=== PATIENT | female | born 1935 | race Caucasian/White ===

== ENCOUNTER 2017-01-29 11:48 | Inpatient (IN) | payer MEDICARE, BC ==
[2017-01-29] MEDS ORDERED: HYDROCODONE/APAP 5/325MG TABLET PO PRN ×2 (16:56)
[2017-01-29] MEDS ORDERED: TAPENTADOL 50 MG TAB PO ONE (20:44)
--- NOTE | 2017-01-29 20:44 | History & Physical ---
History of Present Illness - Date Date of Service for History & Physical: 01/30/17 - History of Present Illness Admitting Diagnosis: deconditioning post op urostomy, oopherectomy, appendectomy , hysterectomy History of Present Illness: 81 yo female admitted to our [facility] for weakness/de conditioning. PMHx of HTN, cardiac pacemaker (h/o afib w/ bradycardia), hypothyroidism, arthritis, back pain, headaches, heart murmur, and bladder cancer. Patient is now post op day 6 from cystectomy, laparoscopic robotic ileal loop diversion, total abdominal hysterectomy, bilateral salpingo-oophorectomy, appendectomy, bilateral pelvic lymph node dissection (01/24/17) for muscle invasive bladder cancer. Most recent labs 01/28/17. Hgb 8.2 s/p 2 L's of PRBC. Anemia thought to be related to blood loss during surgery. Patient lives independently in [place]. One story home. walk in shower. General - Cognitive Patterns Speech: Normal Thought Process: Intact Thought Content: Normal Orientation: Oriented x3 - Communication Preferred Language?: Upper Sorbian [place] Required: Yes Level of Education: High School Preferred Method of Learning: Seeing, Doing, Reading Comprehension Ability: No Impairment Able to Read: Yes Able to Write: Yes Select best description of speech pattern: Clear Speech Ability to express ideas and wants: Understood Understanding verbal content: Understands - Psychosocial Well-Being Usual Living Arrangement: Alone - Physical Functioning Activity Level: Up with assist x1 Turning: Self ad swapnil ROM Ability: Moves all extremities Ambulation Ability: Needs Assist Bed Mobility: Independent Transfer Ability: Needs Assist Bathing Ability: Needs Assist Personal Hygiene: Independent Dressing Ability: Needs Assist Eating (Feeding) Ability: Independent Toileting Ability: Needs Assist Administer Own Medication: Needs Assist - Dental Status Unable to examine: No Broken or loosely fitting full or partial dentures: No No natural teeth or tooth fragment(s) (edentulous): No Abnormal mouth tissue (ulcers, masses, oral lesions, etc.): No Obvious or likely cavity or broken natural teeth: No Inflamed or bleeding gums or loose natural teeth: No Mouth/facial pain, discomfort or difficulty chewing: No - Nutrition Screening Poor oral intake > 1 week: Yes Unplanned weight loss in specified time frame: No Nutrition Support via tube feedings or parenteral nutrition: No Pressure Ulcer: No Significantly underweight define as BMI <18.5 kg/m2: No Albumin <2.5mg/dL: No Persistent nausea/vomiting/diarrhea >3 days: No Difficulty chewing/swallowing/mouth sores: No Admitting Diagnosis: Yes Nutrition Risk Score: High Risk Review of Systems Constitutional: Reports: Weakness. Denies: Chills, Fever Eyes: Denies: Eye pain ENT: Denies: Congestion Respiratory: Denies: Cough, Wheezes Cardiovascular: Denies: Chest pain, Dyspnea on exertion, Edema Endocrine: Reports: Fatigue Gastrointestinal: Reports: Abdominal pain (at surgical site). Denies: Constipation, Diarrhea, Hematochezia, Nausea, Vomiting Genitourinary: Denies: Hematuria Skin: Denies: Change in color, Lesions Neurological: Denies: Abnormal gait Psychiatric: Denies: Anxiety Hematological/Lymphatic: Reports: Anemia Past Medical History - SOCIAL HISTORY Smoking Status: Never smoker Alcohol Use: Occasional - SURGICAL HISTORY Past Surgical History: 10/20/14 l4,l5 stabilization with rods;. D&C; bilateral total knees;. pacemaker insertion;. cystoscopy w TURBT;. cystoscopies in urology clinic;colonoscopy. mar 08 [facility] - RESPIRATORY Hx Respiratory Disorders: No - CARDIOVASCULAR Hx Cardio Disorders: Yes Hx Abnormal EKG: No Hx Cardiac Cath: No Hx Chest Pain: No Hx CHF: No Hx Deep Vein Thrombosis: No Hx Edema: No Hx Heart Attack: No Hx Hypertension: Yes (good control w meds) Hx Hypotension: No Hx Irregular Heartbeat: No Hx Palpitations: No Hx Pacemaker/Defib: Yes (hx bradycardia) Hx Vascular Disease: No - NEURO Hx Neuro Disorders: Yes Hx Brain Tumor: No Hx CVA: No Hx Dementia: No Hx Dizziness: No Hx Headaches: No Hx Neuropathy: No Hx Parkinson's Disease: No Hx Seizures: No Hx Speech Problem: No Hx TIA: No Hx Weakness: Yes (deconditioning) - GI Hx GI Disorders: No - Hx Genitourinary Disorders: Yes Hx Bladder Problem: Yes (CA) Hx Dialysis: No Hx Kidney Stones: No Hx Renal Disease: No Hx UTI: Yes Comment:: bladder CA, Dr Arredondo following - ENDOCRINE Hx Endocrine Disorders: Yes Hx Diabetes: No Hx Thyroid Disease: Yes (hypo) - MUSCULOSKELETAL Hx Musculoskeletal Disorders: Yes Hx Arthritis: Yes Hx Back Injury: No Hx Fibromyalgia: No Hx Gout: No Hx Musculoskeletal Disease: Yes Hx Osteoporosis: No Comment:: scoliosis, 2 bad discs - PSYCH Hx Psych Problems: No - HEMATOLOGY/ONCOLOGY Hx Hematology/Oncology Disorders: Yes Hx Anemia: Yes Hx Blood Disorders: No Hx Bruising: No Hx Cancer: Yes (bladder) Hx Chemotherapy: Yes Hx Radiation Therapy: No Hx Clotting Problems: No Hx Sickle Cell Disease: No Hx Unexplained Bleeding: No Hx Blood Transfusions: Yes Hx Blood Transfusion Reaction: No Family Medical History Any Significant Family History?: Yes Hx Cancer: Father, Children *Cancer Comment: bladder father, daughter breast Hx Dementia: Mother *Dementia Comment: alzheimers mother Hx Diabetes: Children *Diabetes Comment: daughter Hx HTN: Father, Mother Hx Stroke: Father H&P Meds/Allergies - Allergies Allergies: Allergies Allergy/AdvReac Type Severity Reaction Status Date / Time acetaminophen [From Percocet] Allergy severe Verified 01/29/17 17:31 vomiting oxycodone HCl [From Percocet] Allergy severe Verified 01/29/17 17:31 vomiting tramadol HCl [From ULTRAM] AdvReac Severe NAUSEA AND Verified 01/29/17 17:31 VOMITING codeine [CODEINE] AdvReac Intermediate ALTERED Verified 01/29/17 17:31 MENTAL STATUS hydrocodone bitartrate AdvReac Intermediate NAUSEA AND Verified 01/29/17 17:31 [From [place]] VOMITING prednisone AdvReac Intermediate HIVES Verified 01/29/17 17:31 Sulfa (Sulfonamide AdvReac Intermediate RASH Verified 01/29/17 17:31 Antibiotics) [SULFA(SULFONAMIDE ANTIBIOTICS)] - Home Medications Home Medications Medication Instructions Recorded Confirmed Last Taken Ascorbic Acid [Vitamin C] 500 mg PO DAILY 11/17/14 01/29/17 03/16/16 Beta-Carotene(A)-Vits C,E/Mins 1 each PO DAILY 11/17/14 01/29/17 03/16/16 [Vision Vitamins] Biotin 2 cap PO DAILY 11/17/14 01/29/17 03/16/16 Calcium Carbonate [Calcium] 600 mg PO DAILY 11/17/14 01/29/17 03/16/16 Fish Oil/Dha/Epa [Fish Oil 1,200 1 each PO DAILY 11/17/14 01/29/17 03/16/16 mg Fish Oil] Ubidecarenone [Coq10] 2 tab PO DAILY 11/17/14 01/29/17 03/16/16 Hydrocodone/Acetaminophen [[place] 1 - 2 each PO Q4H PRN 01/29/17 01/29/17 Unknown 5-325 Tablet] - Active Medications Active Medications: Current Medications Hydrocodone Bitart/Acetaminophen ([place] 5mg/325mg) 1 each PO Q4H PRN PRN Reason: Pain - General Hydrocodone Bitart/Acetaminophen ([place] 5mg/325mg) 2 each PO Q4H PRN PRN Reason: Pain - General Calcium/Vitamin D (Calcium 500+D Tablet) 1 tab PO BID [place] Levothyroxine Sodium (Synthroid) 100 mcg PO DAILYTHY [place] Lisinopril (Zestril) 20 mg PO DAILY [place] Magnesium Oxide (Mag Ox) 400 mg PO DAILY [place] Vitamin D (Vitamin D3) 5,000 unit PO DAILY [place] Physical Exam - Vital Signs Vital Signs: Vital Signs - Last 24 Hrs Temp Pulse Resp BP Pulse Ox 01/29/17 17:42 98.7 F 64 16 149/88 97 - General General Appearance: Alert, Oriented x3, Cooperative, No acute distress - Head Head exam: Atraumatic, Normocephalic - Eye Eye exam: Normal appearance - ENT ENT exam: Normal exam Ear exam: Normal external inspection Nasal Exam: Normal inspection Mouth exam: Normal external inspection - Neck Neck exam: Normal inspection - Respiratory Respiratory exam: Normal lung sounds bilaterally. negative: Wheezes - Cardiovascular Cardiovascular Exam: Regular rate, Normal rhythm, Normal heart sounds - GI/Abdominal GI/Abdominal exam: Soft, Normal bowel sounds, Other (urostomy bag noted, suture line with amrit). negative: Diminished bowel sounds, Rebound - Rectal Rectal exam: Deferred - exam: Deferred - Extremities Extremities exam: negative: Calf tenderness - Neurological Neurological exam: Alert, Oriented X3 - Skin Skin exam: Warm. negative: Erythema H&P Results - Labs Result Diagrams: 01/30/17 06:23 01/30/17 06:23 Discharge Potential - Discharge Needs Community Services Used Prior to Admission: None Patient Discharge Plan Description: Return Home Discharge Needs Comment: patient unsure at this time if she will need pt/ot upon discharge Plan - Swing Bed Certification Initial Certification Due: 01/29/17 14 Day Re-Cert Due: 02/12/17 44 Day Re-Cert Due: 03/14/17 74 Day Re-Cert Due: 04/13/17 - Detailed Diagnosis and Plan (1) Weakness Current Visit: No Status: Acute Base Code: R53.1 - WEAKNESS Comment: : PT/OT to help build up patient's strength and conditioning. (2) Bladder carcinoma Current Visit: Yes Status: Acute Base Code: C67.9 - MALIGNANT NEOPLASM OF BLADDER, UNSPECIFIED Comment: 01/30/17: s/p cystectomy, laparoscopic robotic ileal loop diversion, total abdominal hysterectomy, bilateral salpingo- oophorectomy, appendectomy, bilateral pelvic lymph node dissection (01/24/17) for muscle invasive bladder cancer. - hgb stable post 2 Units of PRBCs prior to arrival. - pain management: Nucynta - continue all other home medications (3) Full code status Current Visit: Yes Status: Acute Base Code: Z78.9 - OTHER SPECIFIED HEALTH STATUS Comment: 01/30/17: pt is full code
[2017-01-29] MEDS: CALCIUM CARB/VITAMIN D 500MG/200IU PO SCH (21:02)
[2017-01-30] MEDS: LEVOTHYROXINE SODIUM 100 MCG TABLET PO SCH (06:13)
[2017-01-30 06:37] LABS: BASO % 0.2 % (0-6); EOS % 7.2 % (0-6); GRAN % 62.7 % (47-80); HEMATOCRIT 26.6 % (35.0-47.0); HEMOGLOBIN 8.4 gm/dl (11.6-16.0); LYMPH % 17.6 % (16-45); MEAN CELL VOLUME 96.7 fl (81-97); MEAN CORPUSCULAR HEMOGLOBIN 30.5 pg (27-33); MEAN CORPUSCULAR HGB CONC 31.6 g/dl (32-36); MEAN PLATELET VOLUME 9.9 fl (7.4-10.4); MONO % 12.3 % (0-9); PLATELET COUNT 160 K/uL (130-400); RED BLOOD COUNT 2.75 M/uL (3.80-5.40); RED CELL DISTRIBUTION WIDTH 15.3 % (11.5-14.5); WHITE BLOOD COUNT W/O DIFF 5.8 K/uL (4.2-12.2)
[2017-01-30 06:48] LABS: ANION GAP 3.5 (7-16); BLOOD UREA NITROGEN 8 mg/dL (7-17); CARBON DIOXIDE 23.5 mmol/L (22-30); CREATININE 0.7 mg/dL (0.52-1.04); EST GLOMERULAR FILTRATION RATE > 60 ml/min; GLUCOSE,RANDOM 98 mg/dL (70-110)
--- NOTE | 2017-01-30 09:39 | Rehab Evaluation ---
Patient Information - Patient Information Diagnosis: Deconditioning p/o urostomy, oopherectomy, appendectomy, hysterectomy Ordered Treatment: OT Evaluate and Treat Status: Initial Evaluation Surgery: Yes (Multiple incisions in abdomen ) Date of Surgery: 01/24/17 (urostomy, oopherectomy, appendectomy, hysterectomy) History: Detail (Pt here secondary to deconditioning following urostomy, oopherectomy, appendectomy, hysterectomy, marcio pelvic lymph node dissection completed on 01/24/17 as a result of invasive bladder cancer.) Past Medical/Surgical Hx: PAST MEDICAL/SURGICAL HISTORY Past Surgical History 10/20/14 l4,l5 stabilization with rods; D&C; bilateral total knees; pacemaker insertion; cystoscopy w TURBT; cystoscopies in urology clinic;colonoscopy mar 08 [facility] PMH - Respiratory Hx Respiratory Disorders No PMH - Cardiovascular Hx Cardiovascular Disorders Yes Hx Abnormal EKG No Hx Cardiac Catheterization No Hx Chest Pain No Hx Congestive Heart Failure No Hx Deep Vein Thrombosis No Hx Edema No Hx Heart Attack No Hx Hypertension Yes: good control w meds Hx Hypotension No Hx Irregular Heartbeat No Hx Palpitations No Hx Pacemaker/Defibrillator Yes: hx bradycardia Hx Vascular Disease No Hx Heart Murmur No Hx Transient Ischemic Attacks No (TIA) Comment: due to back pain(poor exercise) PMH - Neuro Hx Neurological Disorders Yes Hx Brain Tumor No Hx Cerebrovascular Accident No Hx Dementia No Hx Dizziness No Hx Headaches No Hx Neuropathy No Hx Parkinson's Disease No Hx Seizures No Hx Speech Problem No Hx Syncope No Hx Transient Ischemic Attacks No (TIA) Hx Weakness Yes: deconditioning Comment: using cane now, post [facility] PMH - GI Hx Gastrointestinal Disorders No PMH - Hx Genitourinary Disorders Yes Hx Bladder Problem Yes: CA Hx Dialysis No Hx Kidney Stones No Hx Renal Disease No Hx Urinary Tract Infection Yes Comment: bladder CA, Dr Arredondo following PMH - Endocrine Hx Endocrine Disorders Yes Hx Diabetes No Hx Thyroid Disease Yes: hypo PMH - Musculoskeletal Hx Musculoskeletal Disorders Yes Hx Arthritis Yes Hx Back Injury No Hx Fibromyalgia No Hx Gout No Hx Musculoskeletal Disease Yes Hx Osteoporosis No Comment: scoliosis, 2 bad discs PMH - Psych Hx Psychiatric Problems No PMH - Hematology/Oncology Hx Hematology/Oncology Yes Disorders Hx Anemia Yes Hx Blood Disorders No Hx Bruising No Hx Cancer Yes: bladder Hx Chemotherapy Yes Hx Radiation Therapy No Hx Clotting Problems No Hx Sickle Cell Disease No Hx Unexplained Bleeding No Hx Blood Transfusion Reaction No Premorbid Status: Detail (Pt amb without device while at home and used a cane when outside of the home. She was independent with all ADLs (except laundry) and meal prep.) Social History: Detail (Pt lives alone in a 1-story house w/ 3-steps to enter and 1 hand rail. House is handicap accessible. Laundry is located in the basement but pt reports that her [id number] does her laundry for her. Pt has 3 children, all that live near by and are willing to assist if needed. Pt has a walk-in shower w/ curtain enclosure and hand held shower head. Grab bars located in shower and around standard toilet. Shower had a built in bench but pt reports standing to shower. Pt does have a 4WW w/ seat available at home.) Precautions: Theresa, Fall - Time With Patient Total Time Spent With Patient (Min): 30 Treatment Procedures: Detail (eval LOW) Subjective Information - Subjective Information Per Patient Objective Data - Pain Pain Present: Yes (Abdomen) Pain Intensity: 5 (Nsg notified of pt's pain level) Pain Scale Used: Numeric (1 - 10) - Mental Status Patient Orientation: Oriented x3 - ROM Within normal limits (Pt WNL for BUE's) - Strength/Tone Not within normal limits (Pt grossly 3+ to 4/5. She reports having an old rotator cuff tear in R shld that was not repaired and causes some pain.) - Coordination Appears within normal limits for therapeutic activities - Bed Mobility Independent - Transfers Independent (sit<>stand. Pt completed marching in place at bedside without assist. Pt states she fatigues very quickly. See PT eval for information on ambulation.) - Balance Balance Sitting: Good Balance Standing: Fair - Sensation Deficit (Pt has RTh, RIF, RMF numbness/tingling consistent with Carpal Tunnel Syndrome. She reports having these symptoms for many years.) - ADL's/IADL's Detail (Pt napping upon arrival but willing to participate. Pt does have clothing available. Currently, nsg has been assisting w/ sock don and w/ underwear/pants thread over feet secondary to decreased ability to reach feet due to pain from abdominal incisions. Other then this, pt has been completing UB drsg ind. and finishing LB drsg ind. She states she brushed teeth this a.m. w / nsg present standing at sink without assistance. Pt has multiple incisions w/ amrit. Discussed bathing w/ nsg and PA. It is recommended to continue w/ sponge bathing for a few more days and then try to avoid saturating wounds during showering. Discussed this with patient. Patient understands and agrees but wanting to shower when appropriate. Pt fatigues easily and reports fatigue post evaluation.) Therapy Assessment - Therapy Assessment Detail (Pt tolerated evaluation well. Feel she would benefit from further skilled OT services to address decreased BUE strength, decreased endurance for ADLs, decreased independence with ADLs and for further evaluation of showering.) Problem List - Problem List Occupational Therapy Problem List: Detail (1. Decreased endurance for ADLs 2. Decreased independence w/ drsg and bathing 3. weakness BUE's) Goals - Goals Occupational Therapy Goals: 1. Pt to be ind. with LB drsg using AD if needed. 2. Pt to be ind. and safe with showering. 3. Pt to be grossly 4 to 4+/5 MMT BUE shld flexion, elbow ext, shld abd Prognosis - Prognosis Good Plan - Plan Occupational Therapy Plan: Pt to be treated by OT 2-4x a week M-F
[2017-01-30] MEDS: CALCIUM CARB/VITAMIN D 500MG/200IU PO SCH ×2 (09:50→21:57)
[2017-01-30] MEDS: CHOLECALCIFEROL 1,000 UNIT TABLET PO SCH (09:50)
[2017-01-30] MEDS: LISINOPRIL 20 MG TABLET PO SCH (09:50)
[2017-01-30] MEDS: MAGNESIUM OXIDE 400 MG TABLET PO SCH (09:50)
[2017-01-30] MEDS: TAPENTADOL 50 MG TAB PO PRN ×3 (09:51→21:57)
--- NOTE | 2017-01-30 13:40 | Rehab Evaluation ---
Patient Information - Patient Information Diagnosis: Deconditioning p/o urostomy, oopherectomy, appendectomy, hysterectomy Ordered Treatment: PT Evaluate and Treat Status: Initial Evaluation Surgery: Yes (Multiple incisions in abdomen ) Date of Surgery: 01/24/17 (cystectomy, laparoscopic robotic ileal loop diversion , total abdominal hysterectomy, bilateral salpingo-oopherectomy, appendectomy, B pelvic lymph node dissection) History: Detail (Pt admitted for short-term rehab due to deconditioning following multiple surgical procedures completed on 01/24/17 as a result of invasive bladder cancer.) Past Medical/Surgical Hx: PAST MEDICAL/SURGICAL HISTORY Past Surgical History 10/20/14 l4,l5 stabilization with rods; D&C; bilateral total knees; pacemaker insertion; cystoscopy w TURBT; cystoscopies in urology clinic;colonoscopy mar 08 [facility] PMH - Respiratory Hx Respiratory Disorders No PMH - Cardiovascular Hx Cardiovascular Disorders Yes Hx Abnormal EKG No Hx Cardiac Catheterization No Hx Chest Pain No Hx Congestive Heart Failure No Hx Deep Vein Thrombosis No Hx Edema No Hx Heart Attack No Hx Hypertension Yes: good control w meds Hx Hypotension No Hx Irregular Heartbeat No Hx Palpitations No Hx Pacemaker/Defibrillator Yes: hx bradycardia Hx Vascular Disease No Hx Heart Murmur No Hx Transient Ischemic Attacks No (TIA) Comment: due to back pain(poor exercise) PMH - Neuro Hx Neurological Disorders Yes Hx Brain Tumor No Hx Cerebrovascular Accident No Hx Dementia No Hx Dizziness No Hx Headaches No Hx Neuropathy No Hx Parkinson's Disease No Hx Seizures No Hx Speech Problem No Hx Syncope No Hx Transient Ischemic Attacks No (TIA) Hx Weakness Yes: deconditioning Comment: using cane now, post [facility] PMH - GI Hx Gastrointestinal Disorders No PMH - Hx Genitourinary Disorders Yes Hx Bladder Problem Yes: CA Hx Dialysis No Hx Kidney Stones No Hx Renal Disease No Hx Urinary Tract Infection Yes Comment: bladder CA, Dr Arredondo following PMH - Endocrine Hx Endocrine Disorders Yes Hx Diabetes No Hx Thyroid Disease Yes: hypo PMH - Musculoskeletal Hx Musculoskeletal Disorders Yes Hx Arthritis Yes Hx Back Injury No Hx Fibromyalgia No Hx Gout No Hx Musculoskeletal Disease Yes Hx Osteoporosis No Comment: scoliosis, 2 bad discs PMH - Psych Hx Psychiatric Problems No PMH - Hematology/Oncology Hx Hematology/Oncology Yes Disorders Hx Anemia Yes Hx Blood Disorders No Hx Bruising No Hx Cancer Yes: bladder Hx Chemotherapy Yes Hx Radiation Therapy No Hx Clotting Problems No Hx Sickle Cell Disease No Hx Unexplained Bleeding No Hx Blood Transfusion Reaction No Premorbid Status: Detail (Pt ambulated independently w/o assistive device within her home, but used a cane out of the home, except to walk to mailbox. She was independent with all self-care ADLs, meal prep, and driving; her daughter helps with housecleaning and laundry.) Social History: Detail (Pt lives alone in a 1-story house w/ 3-steps to enter and 1 hand rail. House is handicap accessible. Laundry is located in the basement but pt reports that her [id number] does her laundry for her. Pt has 3 children, all that live near by and are willing to assist if needed. Pt has a walk-in shower w/ curtain enclosure and hand held shower head. Grab bars located in shower and around standard toilet. Shower had a built in bench but pt reports standing to shower. Pt does have a 4WW w/ seat available at home.) Precautions: Sims, Fall - Time With Patient Total Time Spent With Patient (Min): 35 Treatment Procedures: Detail (PT Evaluation) Subjective Information - Subjective Information Per Patient (Pt up in recliner upon presentation. She reported fatigue after cleaning up and eating breakfast, rested a while, and then got dressed and was fatigued again. She reported abdominal surgical pain for which she had had pain medication about an hour prior and it was diminishing. Cooperative for therapy.) Objective Data - Pain Pain Present: Yes Pain Intensity: 4 (Abdomen) Pain Scale Used: Numeric (1 - 10) - Mental Status Patient Orientation: Oriented x3 - Visual Perception Appears within normal limits for therapeutic activities - ROM Within normal limits - Strength/Tone Within normal limits (Good strength in major muscle groups of B LEs to manual muscle testing, but poor endurance.), Not within normal limits (Hip instability noted R > L with standing w/o assistive device and with walking.) - Coordination Appears within normal limits for therapeutic activities - Bed Mobility Independent - Transfers Independent - Balance Balance Sitting: Good Balance Standing: Good (Performed Cheek Balance test: required supervision for standing with narrow base of support; unable to lease picker object from floor due to abdominal surgery; unable to stand on one leg or tandem, but was able to balance in stride stance w/o difficulty. Turns 350 safely but slowly.) - Sensation Intact - Gait Detail (Ambulated w/front wheeled walker w/SBA about 102 feet. Had difficulty talking while walking, felt short of breath.) Therapy Assessment - Therapy Assessment Detail (Pt exhibits mild LE weakness, mild balance difficulty, and significant activity intolerance due to post-surgical condition. She is a good candidate for inpatient physical therapy.) Patient Education - Patient Education Teaching Topic: Exercise/Activity Response: Verbalize Understanding Teaching Method: Discussion Teaching Recipient: Patient Barriers To Learning: None Problem List - Problem List Physical Therapy Problem List: Detail (1. Mild proximal LE weakness. 2. Mild balance impairment. 3. Significant activity intolerance.) Occupational Therapy Problem List: Detail (1. Decreased endurance for ADLs 2. Decreased independence w/ drsg and bathing 3. weakness BUE's) Goals - Goals Physical Therapy Goals: 1. Pt will safely and independently ambulate over short community distances/surfaces with appropriate assistive device. 2. Pt will tolerate 20 minutes of therapeutic activity/exercise w/o undue fatigue. 3. Pt will demonstrate improved confidence with balance with mobility activities. Occupational Therapy Goals: 1. Pt to be ind. with LB drsg using AD if needed. 2. Pt to be ind. and safe with showering. 3. Pt to be grossly 4 to 4+/5 MMT BUE shld flexion, elbow ext, shld abd Prognosis - Prognosis Good Plan - Plan Physical Therapy Plan: Pt will be seen for physical therapy 1-2 times/day - to address above goals. Occupational Therapy Plan: Pt to be treated by OT 2-4x a week -
--- NOTE | 2017-01-30 15:23 | Physical Therapy Tx Note ---
Physical Therapy Tx Note - Treatment Note Tolerated: Good Total Time Spent With Patient: 20 Physical Therapy Tx Note: Detail (Patient states no new complaints. Patient transferred supine to sit independently. Patient transferred sit to and from stand SBA x1. Patient ambulated 310 with wheeled walker SBA x1. Patient performed the following exercises x15 reps each: seated heel raises, seated toe raises, LAQ, hamstring curls with red theraband, and seated hip abduction with red theraband. Patient tolerated treatment well. Patient displays decreased endurance with ambulation, hamstring curls, seated hip abduction, and LAQ. Patient reports fatigued after treatment. Patient was left seated in chair.) Physical Therapy Problem List: Detail (1. Mild proximal LE weakness. 2. Mild balance impairment. 3. Significant activity intolerance.) Physical Therapy Goals: 1. Pt will safely and independently ambulate over short community distances/surfaces with appropriate assistive device. 2. Pt will tolerate 20 minutes of therapeutic activity/exercise w/o undue fatigue. 3. Pt will demonstrate improved confidence with balance with mobility activities. Physical Therapy Plan: Pt will be seen for physical therapy 1-2 times/day M- to address above goals.
[2017-01-31] MEDS: LEVOTHYROXINE SODIUM 100 MCG TABLET PO SCH (07:55)
[2017-01-31] MEDS: TAPENTADOL 50 MG TAB PO PRN ×4 (07:55→21:02)
--- NOTE | 2017-01-31 09:15 | Occupational Therapy Tx Note ---
Occupational Therapy Tx Note - Treatment Note Occupational Therapy Treatment Note: Detail (Attempted OT session this morning, pt's urostomy bag is leaking and nursing is working with her. She prefers to hold OT this morning.) Occupational Therapy Problem List: Detail (1. Decreased endurance for ADLs 2. Decreased independence w/ drsg and bathing 3. weakness BUE's) Occupational Therapy Goals: 1. Pt to be ind. with LB drsg using AD if needed. 2. Pt to be ind. and safe with showering. 3. Pt to be grossly 4 to 4+/5 MMT BUE shld flexion, elbow ext, shld abd Occupational Therapy Plan: Pt to be treated by OT 2-4x a week M-F
[2017-01-31] MEDS: CHOLECALCIFEROL 1,000 UNIT TABLET PO SCH (09:50)
[2017-01-31] MEDS: LISINOPRIL 20 MG TABLET PO SCH (09:50)
[2017-01-31] MEDS: MAGNESIUM OXIDE 400 MG TABLET PO SCH (09:51)
[2017-01-31] MEDS: CALCIUM CARB/VITAMIN D 500MG/200IU PO SCH ×2 (09:51→21:02)
--- NOTE | 2017-01-31 13:27 | Physical Therapy Tx Note ---
Physical Therapy Tx Note - Treatment Note Tolerated: Good Total Time Spent With Patient: 15 Physical Therapy Tx Note: Detail ( The patient was in bed when PT arrivedThe patient refused to ambulate secondary to not feeling well. The patient completed the following LE strengthening exercises: hip marching, hip adductor squeezes, LAQ, ankle pumps, with red T-band hip abduction and hamstring curls all x10-15 reps. The patient was issued written instructions and theraband.) Physical Therapy Problem List: Detail (1. Mild proximal LE weakness. 2. Mild balance impairment. 3. Significant activity intolerance.) Physical Therapy Goals: 1. Pt will safely and independently ambulate over short community distances/surfaces with appropriate assistive device. 2. Pt will tolerate 20 minutes of therapeutic activity/exercise w/o undue fatigue. 3. Pt will demonstrate improved confidence with balance with mobility activities. Physical Therapy Plan: Pt will be seen for physical therapy 1-2 times/day M- to address above goals.
[2017-02-01 06:24] LABS: HEMATOCRIT 26.3 % (35.0-47.0); HEMOGLOBIN 8.2 gm/dl (11.6-16.0); MEAN CELL VOLUME 98.1 fl (81-97); MEAN CORPUSCULAR HGB CONC 31.2 g/dl (32-36); MEAN PLATELET VOLUME 10.2 fl (7.4-10.4); PLATELET COUNT 194 K/uL (130-400); RED BLOOD COUNT 2.68 M/uL (3.80-5.40); RED CELL DISTRIBUTION WIDTH 14.9 % (11.5-14.5); WHITE BLOOD COUNT W/O DIFF 6.4 K/uL (4.2-12.2)
[2017-02-01 06:25] LABS: MEAN CORPUSCULAR HEMOGLOBIN 30.5 pg (27-33)
[2017-02-01] MEDS: LEVOTHYROXINE SODIUM 100 MCG TABLET PO SCH (06:26)
[2017-02-01 06:44] LABS: HYPOCHROMIA 3+
[2017-02-01] MEDS ORDERED: ACETAMINOPHEN 500 MG TABLET PO PRN (09:39)
[2017-02-01] MEDS: CHOLECALCIFEROL 1,000 UNIT TABLET PO SCH (09:46)
[2017-02-01] MEDS: MAGNESIUM OXIDE 400 MG TABLET PO SCH (09:46)
[2017-02-01] MEDS: CALCIUM CARB/VITAMIN D 500MG/200IU PO SCH ×2 (09:46→21:41)
[2017-02-01] MEDS: TAPENTADOL 50 MG TAB PO PRN ×2 (09:47→14:09)
[2017-02-01] MEDS: LISINOPRIL 20 MG TABLET PO SCH (09:47)
[2017-02-01] MEDS: DOCUSATE SODIUM 100 MG CAPSULE PO SCH (21:41)
[2017-02-02] MEDS: LEVOTHYROXINE SODIUM 100 MCG TABLET PO SCH (06:04)
[2017-02-02] MEDS: CHOLECALCIFEROL 1,000 UNIT TABLET PO SCH (09:32)
[2017-02-02] MEDS: TAPENTADOL 50 MG TAB PO PRN ×2 (09:32→16:36)
[2017-02-02] MEDS: CALCIUM CARB/VITAMIN D 500MG/200IU PO SCH ×2 (09:32→21:11)
[2017-02-02] MEDS: MAGNESIUM OXIDE 400 MG TABLET PO SCH (09:33)
[2017-02-02] MEDS: LISINOPRIL 20 MG TABLET PO SCH (09:33)
[2017-02-02] MEDS: DOCUSATE SODIUM 100 MG CAPSULE PO SCH ×2 (09:36→21:11)
[2017-02-02] MEDS ORDERED: FUROSEMIDE 20 MG TABLET PO ONE (12:24)
[2017-02-02 12:56] LABS: ANION GAP 6.1 (7-16); BLOOD UREA NITROGEN 13 mg/dL (7-17); CARBON DIOXIDE 27.9 mmol/L (22-30); CREATININE 0.7 mg/dL (0.52-1.04); EST GLOMERULAR FILTRATION RATE > 60 ml/min; GLUCOSE,RANDOM 127 mg/dL (70-110)
[2017-02-03] MEDS: LEVOTHYROXINE SODIUM 100 MCG TABLET PO SCH (06:24)
--- NOTE | 2017-02-03 09:43 | Occupational Therapy Tx Note ---
Occupational Therapy Tx Note - Treatment Note Tolerated: Good Total Time Spent With Patient: 30 (ADL) Occupational Therapy Treatment Note: Detail (S: Pt ready to shower. O: Sit to stand from chair Indly. Amb to closet and picked out clean clothing, amb to bathroom and emptied urostomy bag on toilet. Pt doffed PJ top, bottoms, slip on shoes and briefs Indly in standing. Pt completed showering in sitting with hand held shower Indly. Pt dried self Indly. Donned bra, shirt, briefs, pants and shoes Indly. Pt amb to sink and completed oral hygiene and grooming Indly. Amb back to chair Indly. A: Ind with showering, Ind with total body dressing , Ind with grooming/hygiene, mild fatigue after activity) Occupational Therapy Problem List: Detail (1. Decreased endurance for ADLs 2. Decreased independence w/ drsg and bathing 3. weakness BUE's) Occupational Therapy Goals: 1. Pt to be ind. with LB drsg using AD if needed. 2. Pt to be ind. and safe with showering. 3. Pt to be grossly 4 to 4+/5 MMT BUE shld flexion, elbow ext, shld abd Prognosis: Good Occupational Therapy Plan: Pt to be treated by OT 2-4x a week M-F
[2017-02-03] MEDS: MAGNESIUM OXIDE 400 MG TABLET PO SCH (11:00)
[2017-02-03] MEDS: CHOLECALCIFEROL 1,000 UNIT TABLET PO SCH (11:00)
[2017-02-03] MEDS: CALCIUM CARB/VITAMIN D 500MG/200IU PO SCH ×2 (11:00→21:44)
[2017-02-03] MEDS: DOCUSATE SODIUM 100 MG CAPSULE PO SCH ×2 (11:01→21:44)
[2017-02-03] MEDS: LISINOPRIL 20 MG TABLET PO SCH (11:01)
[2017-02-03] MEDS: TAPENTADOL 50 MG TAB PO PRN ×2 (11:01→20:59)
[2017-02-03] MEDS ORDERED: FUROSEMIDE 20 MG TABLET PO ONE (20:04)
[2017-02-04] MEDS: LEVOTHYROXINE SODIUM 100 MCG TABLET PO SCH (07:00)
[2017-02-04] MEDS: DOCUSATE SODIUM 100 MG CAPSULE PO SCH ×2 (10:05→21:28)
[2017-02-04] MEDS: CALCIUM CARB/VITAMIN D 500MG/200IU PO SCH ×2 (10:05→21:27)
[2017-02-04] MEDS: CHOLECALCIFEROL 1,000 UNIT TABLET PO SCH (10:06)
[2017-02-04] MEDS: LISINOPRIL 20 MG TABLET PO SCH (10:06)
[2017-02-04] MEDS: MAGNESIUM OXIDE 400 MG TABLET PO SCH (10:06)
--- NOTE | 2017-02-04 12:24 | Occupational Therapy Tx Note ---
Occupational Therapy Tx Note - Treatment Note Tolerated: Good Total Time Spent With Patient: 30 (ther activity) Occupational Therapy Treatment Note: Detail (S: Pt reports she is feeling fatigued but improving every day. O: Sit to stand and amb to rehab gym with 2 wheeled walker Indly. Pt had mild difficulty with carpeting. She completed marcio UE repetitive/resistive overhead reaching activity. Reviewed use of countertops for moving items around in kitchen with walker, she feels she will be using her cane or no assistive device when she returns home. Pt amb back to room with 2 wheeled walker Indly. A: Pt fatigued with ambulation but had no c/ o increased pain or dizziness) Occupational Therapy Problem List: Detail (1. Decreased endurance for ADLs 2. Decreased independence w/ drsg and bathing 3. weakness BUE's) Occupational Therapy Goals: 1. Pt to be ind. with LB drsg using AD if needed. 2. Pt to be ind. and safe with showering. 3. Pt to be grossly 4 to 4+/5 MMT BUE shld flexion, elbow ext, shld abd Prognosis: Good Occupational Therapy Plan: Pt to be treated by OT 2-4x a week M-F
--- NOTE | 2017-02-04 14:19 | Physical Therapy Tx Note ---
Physical Therapy Tx Note - Treatment Note Physical Therapy Tx Note: Detail (The patient was sleeping when PT arrived. The patient stated she was too exhausted from OT treatment to participate. Will see patient tomorrow.) Physical Therapy Problem List: Detail (1. Mild proximal LE weakness. 2. Mild balance impairment. 3. Significant activity intolerance.) Physical Therapy Goals: 1. Pt will safely and independently ambulate over short community distances/surfaces with appropriate assistive device. 2. Pt will tolerate 20 minutes of therapeutic activity/exercise w/o undue fatigue. 3. Pt will demonstrate improved confidence with balance with mobility activities. Physical Therapy Plan: Pt will be seen for physical therapy 1-2 times/day M- to address above goals.
[2017-02-04] MEDS ORDERED: ZOLPIDEM TARTRATE 5 MG TABLET PO PRN (21:13)
[2017-02-04] MEDS: TAPENTADOL 50 MG TAB PO PRN (21:27)
[2017-02-05 06:12] LABS: BASO % 0.4 % (0-6); EOS % 7.6 % (0-6); GRAN % 56.1 % (47-80); HEMATOCRIT 26.4 % (35.0-47.0); HEMOGLOBIN 8.1 gm/dl (11.6-16.0); LYMPH % 22.7 % (16-45); MEAN CELL VOLUME 98.1 fl (81-97); MEAN CORPUSCULAR HEMOGLOBIN 30.1 pg (27-33); MEAN CORPUSCULAR HGB CONC 30.7 g/dl (32-36); MEAN PLATELET VOLUME 9.6 fl (7.4-10.4); MONO % 13.2 % (0-9); PLATELET COUNT 238 K/uL (130-400); RED BLOOD COUNT 2.69 M/uL (3.80-5.40); RED CELL DISTRIBUTION WIDTH 14.4 % (11.5-14.5); WHITE BLOOD COUNT W/O DIFF 5.4 K/uL (4.2-12.2)
[2017-02-05] MEDS: LEVOTHYROXINE SODIUM 100 MCG TABLET PO SCH (06:49)
[2017-02-05] MEDS: DOCUSATE SODIUM 100 MG CAPSULE PO SCH ×2 (09:07→21:53)
[2017-02-05] MEDS: CALCIUM CARB/VITAMIN D 500MG/200IU PO SCH ×2 (09:07→21:41)
[2017-02-05] MEDS: MAGNESIUM OXIDE 400 MG TABLET PO SCH (09:07)
[2017-02-05] MEDS: CHOLECALCIFEROL 1,000 UNIT TABLET PO SCH (09:07)
[2017-02-05] MEDS: LISINOPRIL 20 MG TABLET PO SCH (09:07)
--- NOTE | 2017-02-05 09:30 | Physician Progress Note ---
Subjective - Date Date of Progress Note: 02/05/17 - Admitting Diagnosis Diagnosis: deconditioning post op urostomy, oopherectomy, appendectomy, hysterectomy - Subjective Events since last encounter: Care conference today. Daughter Shari in attendance. Therapy reports she is getting stronger, is performing ADLs and showering independently. Will need continued balance support while using stairs at time of discharge. PT/OT goals have been met. Dietary consult yesterday for noted 8lb weight loss since admission. Patient reports her usual body weight is about 165, did have some edema 2 days ago and was given one time dose of Lasix with resolution of edema. Is eating well and drinking an ensure daily. Weigh loss most likely fluid overload from hospitalization. No medical concerns related to discharge reported from patient or daughter. Nursing Care Plan Problem List Activity Intolerance (Swing Bed) Start: 01/29/17 16: 40 Freq: Status: Active Created 01/29/17 16:40 MISA (Rec: 01/29/17 16:40 MISA [id number]) Knowledge Deficit (Swing Bed) Start: 01/29/17 16: 40 Freq: Status: Active Created 01/29/17 16:40 MISA (Rec: 01/29/17 16:40 MISA [id number]) Pain (Swing Bed) Start: 01/29/17 16: 40 Freq: Status: Active Created 01/29/17 16:40 MISA (Rec: 01/29/17 16:40 MISA [id number]) General - Cognitive Patterns Speech: Normal Thought Process: Intact Thought Content: Normal - Communication Select best description of speech pattern: Clear Speech Ability to express ideas and wants: Understood Understanding verbal content: Understands - Mood and Behavior Patterns Appearance: Well Groomed Mood: Normal Attitude: Cooperative Motor Activity: Calm Affect: Appropriate Hallucinations: Denies - Physical Functioning Activity Level: Up as tolerated Turning: Self ad swapnil ROM Ability: Moves all extremities Assistive Devices: None Ambulation Ability: Independent Bed Mobility: Independent Transfer Ability: Needs Assist Bathing Ability: Independent Personal Hygiene: Independent Dressing Ability: Independent Eating (Feeding) Ability: Independent Toileting Ability: Independent Administer Own Medication: Needs Assist - Continence Bowel Pattern: Normal for Patient Meds/Allergies - Allergies Allergies Allergy/AdvReac Type Severity Reaction Status Date / Time acetaminophen [From Percocet] Allergy severe Verified 01/29/17 17:31 vomiting oxycodone HCl [From Percocet] Allergy severe Verified 01/29/17 17:31 vomiting tramadol HCl [From ULTRAM] AdvReac Severe NAUSEA AND Verified 01/29/17 17:31 VOMITING codeine [CODEINE] AdvReac Intermediate ALTERED Verified 01/29/17 17:31 MENTAL STATUS hydrocodone bitartrate AdvReac Intermediate NAUSEA AND Verified 01/29/17 17:31 [From [place]] VOMITING prednisone AdvReac Intermediate HIVES Verified 01/29/17 17:31 Sulfa (Sulfonamide AdvReac Intermediate RASH Verified 01/29/17 17:31 Antibiotics) [SULFA(SULFONAMIDE ANTIBIOTICS)] - Active Medications Current Medications Acetaminophen (Tylenol 500mg Tab) 1,000 mg PO Q6H PRN PRN Reason: pain Calcium/Vitamin D (Calcium 500+D Tablet) 1 tab PO BID [facility] Last Admin: 02/05/17 09:07 Dose: 1 tab Docusate Sodium (Colace) 100 mg PO BID [facility] Last Admin: 02/05/17 09:07 Dose: Not Given [facility]othy[facility] Last Admin: 02/05/17 06:49 Dose: 100 mcg Lisinopril (Zestril) 20 mg PO DAILY [facility] Last Admin: 02/05/17 09:07 Dose: 20 mg Magnesium Oxide (Mag Ox) 400 mg PO DAILY [facility] Last Admin: 02/05/17 09:07 Dose: 400 mg Tapentadol (Nucynta) 50 mg PO Q4H PRN PRN Reason: Pain - General Last Admin: 02/04/17 21:27 Dose: 50 mg Vitamin D (Vitamin D3) 5,000 unit PO DAILY [facility] Last Admin: 02/05/17 09:07 Dose: 5,000 unit Zolpidem Tartrate (Ambien) 5 mg PO QHS PRN PRN Reason: INSOMNIA Last Admin: 02/04/17 21:27 Dose: 5 mg Objective - Vital Signs Vital Signs: Vital Signs - Last 24 Hrs Temp Pulse Resp BP Pulse Ox 02/04/17 10:00 98.6 F 62 18 115/50 95 - General General Appearance: Alert, Oriented x3, Cooperative, No acute distress - Head Head exam: Atraumatic, Normocephalic - Eye Eye exam: Normal appearance - ENT ENT exam: Normal exam Ear exam: Normal external inspection Nasal Exam: Normal inspection Mouth exam: Normal external inspection - Neck Neck exam: Normal inspection - Respiratory Respiratory exam: Normal lung sounds bilaterally. negative: Wheezes - Cardiovascular Cardiovascular Exam: Regular rate, Normal rhythm, Normal heart sounds - GI/Abdominal GI/Abdominal exam: Soft, Normal bowel sounds, Other (urostomy bag noted, suture line with amrit, no evidence infection, stoma beefy red). negative: Diminished bowel sounds, Rebound - Rectal Rectal exam: Deferred - exam: Deferred - Extremities Extremities exam: negative: Calf tenderness, Pedal edema - Neurological Neurological exam: Alert, Oriented X3 - Psychiatric Psychiatric exam: Normal affect, Normal mood - Skin Skin exam: Warm. negative: Erythema H&P Results - Labs Result Diagrams: 02/05/17 06:06 02/02/17 12:44 Labs Last 24 Hours: Laboratory Results - last 24 hr 02/05/17 06:06 WBC 5.4 RBC 2.69 L Hgb 8.1 L Hct 26.4 L MCV 98.1 H MCH 30.1 MCHC 30.7 L RDW 14.4 Plt Count 238 MPV 9.6 Gran % 56.1 Lymphocytes % 22.7 Monocytes % 13.2 H Eosinophils % 7.6 H Basophils % 0.4 Discharge Potential - Discharge Needs Community Services Used Prior to Admission: None Patient Discharge Plan Description: Return Home, Visiting Nurse Community Services Needed at Discharge: Occupational Therapy, Physical Therapy Discharge Needs Comment: set up with [place] prior to dc from [facility] Plan - Swing Bed Certification Initial Certification Due: 01/29/17 14 Day Re-Cert Due: 02/12/17 44 Day Re-Cert Due: 03/14/17 74 Day Re-Cert Due: 04/13/17 - Detailed Diagnosis and Plan (1) Weakness Current Visit: No Status: Acute Base Code: R53.1 - WEAKNESS Comment: : Goals of PT/OT have been met. Will plan on discharge home tomorrow with visiting nurse services (2) Bladder carcinoma Current Visit: Yes Status: Acute Base Code: C67.9 - MALIGNANT NEOPLASM OF BLADDER, UNSPECIFIED Comment: 02/05/17: s/p cystectomy, laparoscopic robotic ileal loop diversion, total abdominal hysterectomy, bilateral salpingo- oophorectomy, appendectomy, bilateral pelvic lymph node dissection (01/24/17) for muscle invasive bladder cancer. - hgb stable post 2 Units of PRBCs prior to arrival. Hgb 8.1, asymptomatic - pain management: Nucynta - continue all other home medications - recheck CBC 1 week after discharge - follow up PCP 1-2 weeks after discharge - follow up Dr Castano as scheduled 02/06/17 - follow up Dr Mast as scheduled after discharge (3) Full code status Current Visit: Yes Status: Acute Base Code: Z78.9 - OTHER SPECIFIED HEALTH STATUS Comment: 02/05/17: pt is full code (4) DVT prophylaxis Current Visit: Yes Status: Acute Base Code: [id number] - Comment: 02/05/17- nursing to encourage frequent ambulation, continue working with PT/OT
--- NOTE | 2017-02-05 11:30 | Rehab Discharge Summary ---
Patient Information - Patient Information Diagnosis: Deconditioning p/o urostomy, oopherectomy, appendectomy, hysterectomy Ordered Treatment: PT Evaluate and Treat Surgery: Yes (Multiple incisions in abdomen ) Date of Surgery: 01/24/17 (cystectomy, laparoscopic robotic ileal loop diversion , total abdominal hysterectomy, bilateral salpingo-oopherectomy, appendectomy, B pelvic lymph node dissection) History: Detail (Pt admitted for short-term rehab due to deconditioning following multiple surgical procedures completed on 01/24/17 as a result of invasive bladder cancer.) Past Medical/Surgical Hx: PAST MEDICAL/SURGICAL HISTORY Past Surgical History 10/20/14 l4,l5 stabilization with rods; D&C; bilateral total knees; pacemaker insertion; cystoscopy w TURBT; cystoscopies in urology clinic;colonoscopy mar 08 [facility] PMH - Respiratory Hx Respiratory Disorders No PMH - Cardiovascular Hx Cardiovascular Disorders Yes Hx Abnormal EKG No Hx Cardiac Catheterization No Hx Chest Pain No Hx Congestive Heart Failure No Hx Deep Vein Thrombosis No Hx Edema No Hx Heart Attack No Hx Hypertension Yes: good control w meds Hx Hypotension No Hx Irregular Heartbeat No Hx Palpitations No Hx Pacemaker/Defibrillator Yes: hx bradycardia Hx Vascular Disease No Hx Heart Murmur No Hx Transient Ischemic Attacks No (TIA) Comment: due to back pain(poor exercise) PMH - Neuro Hx Neurological Disorders Yes Hx Brain Tumor No Hx Cerebrovascular Accident No Hx Dementia No Hx Dizziness No Hx Headaches No Hx Neuropathy No Hx Parkinson's Disease No Hx Seizures No Hx Speech Problem No Hx Syncope No Hx Transient Ischemic Attacks No (TIA) Hx Weakness Yes: deconditioning Comment: using cane now, post [facility] PMH - GI Hx Gastrointestinal Disorders No PMH - Hx Genitourinary Disorders Yes Hx Bladder Problem Yes: CA Hx Dialysis No Hx Kidney Stones No Hx Renal Disease No Hx Urinary Tract Infection Yes Comment: bladder CA, Dr Arredondo following PMH - Endocrine Hx Endocrine Disorders Yes Hx Diabetes No Hx Thyroid Disease Yes: hypo PMH - Musculoskeletal Hx Musculoskeletal Disorders Yes Hx Arthritis Yes Hx Back Injury No Hx Fibromyalgia No Hx Gout No Hx Musculoskeletal Disease Yes Hx Osteoporosis No Comment: scoliosis, 2 bad discs PMH - Psych Hx Psychiatric Problems No PMH - Hematology/Oncology Hx Hematology/Oncology Yes Disorders Hx Anemia Yes Hx Blood Disorders No Hx Bruising No Hx Cancer Yes: bladder Hx Chemotherapy Yes Hx Radiation Therapy No Hx Clotting Problems No Hx Sickle Cell Disease No Hx Unexplained Bleeding No Hx Blood Transfusion Reaction No Premorbid Status: Detail (Pt ambulated independently w/o assistive device within her home, but used a cane out of the home, except to walk to mailbox. She was independent with all self-care ADLs, meal prep, and driving; her daughter helps with housecleaning and laundry.) Social History: Detail (Pt lives alone in a 1-story house w/ 3-steps to enter and 1 hand rail. House is handicap accessible. Laundry is located in the basement but pt reports that her [id number] does her laundry for her. Pt has 3 children, all that live near by and are willing to assist if needed. Pt has a walk-in shower w/ curtain enclosure and hand held shower head. Grab bars located in shower and around standard toilet. Shower had a built in bench but pt reports standing to shower. Pt does have a 4WW w/ seat available at home.) Precautions: [place], Fall - Time With Patient Total Time Spent With Patient (Min): 25 (Treatment was limited due to complaints of fatigue.) Treatment Procedures: Detail (Re-evaluation, gait training with standard cane.) Subjective Information - Subjective Information Per Patient (The patient had complaints of feeling unsteady.) Objective Data - Mental Status Patient Orientation: Oriented x3 - Visual Perception Appears within normal limits for therapeutic activities - ROM Within normal limits - Strength/Tone Within normal limits (The patient's LE strength is generally 4+ to 5/5 except for R hip abductors which are 4/5. The patient exhibits improved muscular endurance. ( No LE instability with gait with wheeled walker.)) - Bed Mobility Independent - Transfers Independent (Independent with sit to and from stand and toilet transfer.) - Balance Balance Sitting: Good Balance Standing: Good (The patient scored 46/56 on the Cheek Balance Assessment . The patient continues to require supervision when standing with a narrow base of support and when picking up an object. The patient has increased postural sway with tandem standing and is unable to stand on one leg. The patient turns 360 degrees safely but slowly.) - Gait Detail (The patient ambulates independently with two wheeled walker distances of 300 feet plus. The patient ambulated with stand cane 120 feet x 1 with CG to supervision for safety due to occasional stagger step. Patient is more comfortable holding cane in L hand. The patient ambulated on 3 steps with use of one railing with supervision for safety.) Therapy Assessment - Therapy Assessment Detail (The patient has improved ability to complete prolonged physical activity , improved muscular endurance and improved balance. Discussed with patient progression of ambulation to standard cane, with using wheeled walker primarly and ambulating with cane household distances only. The patient feels she does not need ongoing Home Health Rehab Services.) Patient Education - Patient Education Teaching Topic: Exercise/Activity (LE strengthening and balance exercises.) Response: Return Demonstration Teaching Method: Discussion, Handout Teaching Recipient: Patient Barriers To Learning: Age Related Problem List - Problem List Physical Therapy Problem List: Detail (1. Mild proximal LE weakness. 2. Mild balance impairment. 3. Significant activity intolerance.) Occupational Therapy Problem List: Detail (1. Decreased endurance for ADLs 2. Decreased independence w/ drsg and bathing 3. weakness BUE's) Goals - Goals Physical Therapy Goals: GOALS MET: 1. Pt will safely and independently ambulate over short community distances/surfaces with appropriate assistive device. 2. Pt will tolerate 20 minutes of therapeutic activity/exercise w/o undue fatigue. 3. Pt will demonstrate improved confidence with balance with mobility activities. Occupational Therapy Goals: 1. Pt to be ind. with LB drsg using AD if needed. 2. Pt to be ind. and safe with showering. 3. Pt to be grossly 4 to 4+/5 MMT BUE shld flexion, elbow ext, shld abd Plan - Plan Physical Therapy Plan: The patient is to discharge to home on 02/06/17 and is to continue with HEP. The patient is to have Home Health RN who will assess further rehab. needs. Occupational Therapy Plan: Pt to be treated by OT 2-4x a week M-F
--- NOTE | 2017-02-05 14:36 | Rehab Discharge Summary ---
Patient Information - Patient Information Diagnosis: Deconditioning p/o urostomy, oopherectomy, appendectomy, hysterectomy Ordered Treatment: OT Evaluate and Treat Surgery: Yes (Multiple incisions in abdomen ) Date of Surgery: 01/24/17 (cystectomy, laparoscopic robotic ileal loop diversion , total abdominal hysterectomy, bilateral salpingo-oopherectomy, appendectomy, B pelvic lymph node dissection) History: Detail (Pt admitted for short-term rehab due to deconditioning following multiple surgical procedures completed on 01/24/17 as a result of invasive bladder cancer.) Past Medical/Surgical Hx: PAST MEDICAL/SURGICAL HISTORY Past Surgical History 10/20/14 l4,l5 stabilization with rods; D&C; bilateral total knees; pacemaker insertion; cystoscopy w TURBT; cystoscopies in urology clinic;colonoscopy mar 08 [facility] PMH - Respiratory Hx Respiratory Disorders No PMH - Cardiovascular Hx Cardiovascular Disorders Yes Hx Abnormal EKG No Hx Cardiac Catheterization No Hx Chest Pain No Hx Congestive Heart Failure No Hx Deep Vein Thrombosis No Hx Edema No Hx Heart Attack No Hx Hypertension Yes: good control w meds Hx Hypotension No Hx Irregular Heartbeat No Hx Palpitations No Hx Pacemaker/Defibrillator Yes: hx bradycardia Hx Vascular Disease No Hx Heart Murmur No Hx Transient Ischemic Attacks No (TIA) Comment: due to back pain(poor exercise) PMH - Neuro Hx Neurological Disorders Yes Hx Brain Tumor No Hx Cerebrovascular Accident No Hx Dementia No Hx Dizziness No Hx Headaches No Hx Neuropathy No Hx Parkinson's Disease No Hx Seizures No Hx Speech Problem No Hx Syncope No Hx Transient Ischemic Attacks No (TIA) Hx Weakness Yes: deconditioning Comment: using cane now, post [facility] PMH - GI Hx Gastrointestinal Disorders No PMH - Hx Genitourinary Disorders Yes Hx Bladder Problem Yes: CA Hx Dialysis No Hx Kidney Stones No Hx Renal Disease No Hx Urinary Tract Infection Yes Comment: bladder CA, Dr Arredondo following PMH - Endocrine Hx Endocrine Disorders Yes Hx Diabetes No Hx Thyroid Disease Yes: hypo PMH - Musculoskeletal Hx Musculoskeletal Disorders Yes Hx Arthritis Yes Hx Back Injury No Hx Fibromyalgia No Hx Gout No Hx Musculoskeletal Disease Yes Hx Osteoporosis No Comment: scoliosis, 2 bad discs PMH - Psych Hx Psychiatric Problems No PMH - Hematology/Oncology Hx Hematology/Oncology Yes Disorders Hx Anemia Yes Hx Blood Disorders No Hx Bruising No Hx Cancer Yes: bladder Hx Chemotherapy Yes Hx Radiation Therapy No Hx Clotting Problems No Hx Sickle Cell Disease No Hx Unexplained Bleeding No Hx Blood Transfusion Reaction No Premorbid Status: Detail (Pt ambulated independently w/o assistive device within her home, but used a cane out of the home, except to walk to mailbox. She was independent with all self-care ADLs, meal prep, and driving; her daughter helps with housecleaning and laundry.) Social History: Detail (Pt lives alone in a 1-story house w/ 3-steps to enter and 1 hand rail. House is handicap accessible. Laundry is located in the basement but pt reports that her [id number] does her laundry for her. Pt has 3 children, all that live near by and are willing to assist if needed. Pt has a walk-in shower w/ curtain enclosure and hand held shower head. Grab bars located in shower and around standard toilet. Shower had a built in bench but pt reports standing to shower. Pt does have a 4WW w/ seat available at home.) Precautions: [place], Fall Subjective Information - Subjective Information Per Patient Objective Data - Pain Pain Present: Yes (very minimal abdominal pain) - Mental Status Patient Orientation: Oriented x3 - Visual Perception Appears within normal limits for therapeutic activities - ROM Within normal limits (Jonatan UE AROM WNL) - Strength/Tone Within normal limits (Jonatan UE MMT grossly 4+/5 although she reports abdominal pain with resistive UE activities) - Coordination Appears within normal limits for therapeutic activities - Bed Mobility Independent - Transfers Independent - Balance Balance Sitting: Good Balance Standing: Good - Sensation Intact - Gait Detail (Ind with ambulating household distances with 4 wheeled walker) - ADL's/IADL's Detail (Ind with showering, total body dressing and grooming/hygiene activities. ) Therapy Assessment - Therapy Assessment Detail (Pt is Ind with all ADLs, functional mobility needed for safe and Ind ADLs/IADLs.) Problem List - Problem List Physical Therapy Problem List: Detail (1. Mild proximal LE weakness. 2. Mild balance impairment. 3. Significant activity intolerance.) Occupational Therapy Problem List: Detail (1. Decreased endurance for ADLs 2. Decreased independence w/ drsg and bathing 3. weakness BUE's) Goals - Goals Physical Therapy Goals: GOALS MET: 1. Pt will safely and independently ambulate over short community distances/surfaces with appropriate assistive device. 2. Pt will tolerate 20 minutes of therapeutic activity/exercise w/o undue fatigue. 3. Pt will demonstrate improved confidence with balance with mobility activities. Occupational Therapy Goals: Goals Met: 1. Pt to be ind. with LB drsg using AD if needed. 2. Pt to be ind. and safe with showering. 3. Pt to be grossly 4 to 4+/5 MMT BUE shld flexion, elbow ext, shld abd Prognosis - Prognosis Good Plan - Plan Physical Therapy Plan: The patient is to discharge to home on 02/06/17 and is to continue with HEP. The patient is to have Home Health RN who will assess further rehab. needs. Occupational Therapy Plan: Pt is discharging home on 02/06/17.
[2017-02-05] MEDS: TAPENTADOL 50 MG TAB PO PRN ×2 (16:33→20:37)
[2017-02-06] MEDS: LEVOTHYROXINE SODIUM 100 MCG TABLET PO SCH (06:50)
--- NOTE | 2017-02-06 09:27 | Discharge Summary ---
Providers Discharge Summary Date: 02/06/17 Date of admission: 01/29/17 16:09 Expected Date of Discharge: 02/06/17 Attending physician: JUANCARLOS ROSALES Primary care physician: Yanni Rushing Physical Exam - Vital Signs Vital Signs: Vital Signs - Last 24 Hrs Temp Pulse Resp BP Pulse Ox 02/05/17 10:00 97.5 F L 60 18 120/46 95 - General General Appearance: Alert, Oriented x3, Cooperative, No acute distress - Head Head exam: Atraumatic, Normocephalic - Eye Eye exam: Normal appearance - ENT ENT exam: Normal exam Ear exam: Normal external inspection Nasal Exam: Normal inspection Mouth exam: Normal external inspection - Neck Neck exam: Normal inspection - Respiratory Respiratory exam: Normal lung sounds bilaterally. negative: Wheezes - Cardiovascular Cardiovascular Exam: Regular rate, Normal rhythm, Normal heart sounds, Systolic murmur (holosystolic radiating to left axilla) Peripheral Pulses: 2+: Dorsalis Pedis (R), Dorsalis Pedis (L) - GI/Abdominal GI/Abdominal exam: Soft, Normal bowel sounds, Other (urostomy bag noted, suture line mid abdoman and right side of abdomen with amrit, no evidence infection, stoma beefy red). negative: Diminished bowel sounds, Rebound - Rectal Rectal exam: Deferred - exam: Deferred - Extremities Extremities exam: negative: Calf tenderness, Pedal edema - Neurological Neurological exam: Alert, Oriented X3 - Psychiatric Psychiatric exam: Normal affect, Normal mood - Skin Skin exam: Warm. negative: Erythema Hospitalization - Hospitalization Admission Diagnosis: deconditioning post op urostomy, oopherectomy, appendectomy , hysterectomy - Problem List/Discharge Diagnosis (1) Weakness Current Visit: No Status: Acute Base Code: R53.1 - WEAKNESS Comment: : Goals of PT/OT have been met. Will plan on discharge home today with visiting nurse services - follow up PCP 1-2 weeks - follow up oncologist Dr Mast as scheduled - follow up Dr Castano today as scheduled (2) Bladder carcinoma Current Visit: Yes Status: Acute Base Code: C67.9 - MALIGNANT NEOPLASM OF BLADDER, UNSPECIFIED Comment: 02/06/17: s/p cystectomy, laparoscopic robotic ileal loop diversion, total abdominal hysterectomy, bilateral salpingo- oophorectomy, appendectomy, bilateral pelvic lymph node dissection (01/24/17) for muscle invasive bladder cancer. - hgb stable post 2 Units of PRBCs prior to arrival. Hgb 8.1 02/05, no acute evidence of bleed, asymptomatic - pain management: Nucynta - continue all other home medications - recheck CBC 1 week after discharge - follow up PCP 1-2 weeks after discharge - follow up Dr Castano as scheduled 02/06/17 - follow up Dr Mast as scheduled after discharge (3) Full code status Current Visit: Yes Status: Acute Base Code: Z78.9 - OTHER SPECIFIED HEALTH STATUS Comment: 02/06/17: pt is full code (4) DVT prophylaxis Current Visit: Yes Status: Acute Base Code: [id number] - Comment: 02/06/17- nursing to encourage frequent ambulation, continue working with PT/OT - Hospitalization Course Disposition: Home Health Service Hospital Course: 81 yo female admitted to our [facility] for weakness/de conditioning. PMHx of HTN, cardiac pacemaker (h/o afib w/ bradycardia), hypothyroidism, arthritis, back pain, headaches, heart murmur, and bladder cancer. Patient is now post op day 6 from cystectomy, laparoscopic robotic ileal loop diversion, total abdominal hysterectomy, bilateral salpingo-oophorectomy, appendectomy, bilateral pelvic lymph node dissection (01/24/17) for muscle invasive bladder cancer. Most recent labs 01/28/17. Hgb 8.2 s/p 2 L's of PRBC. Anemia thought to be related to blood loss during surgery. Patient lives independently in [place]. One story home. walk in shower. 02/06/17- Swing Bed admission without complications, VSS , moving bowels without issue. Stoma teaching via nursing prior to discharge. Pain controlled with Nucynta. Therapy goals met and stable for discharge with visiting nurse service Abnormal Labs: Abnormal Lab Results 01/30/17 01/30/17 02/01/17 Range/Units 06:23 06:23 06:00 RBC 2.75 L 2.68 L (3.80-5.40) M/uL Hgb 8.4 L 8.2 L (11.6-16.0) gm/dl Hct 26.6 L 26.3 L (35.0-47.0) % MCV 98.1 H (81-97) fl MCHC 31.6 L 31.2 L (32-36) g/dl RDW 15.3 H 14.9 H (11.5-14.5) % Monocytes % 12.3 H (0-9) % Eosinophils % 7.2 H (0-6) % Monocytes 14.0 H (0-9) % Chloride 113 H (98-107) mmol/L Anion Gap 3.5 L (7-16) Random Glucose (70-110) mg/dL Calcium 8.4 L (8.5-10.1) mg/dL 02/02/17 02/05/17 Range/Units 12:44 06:06 RBC 2.69 L (3.80-5.40) M/uL Hgb 8.1 L (11.6-16.0) gm/dl Hct 26.4 L (35.0-47.0) % MCV 98.1 H (81-97) fl MCHC 30.7 L (32-36) g/dl RDW (11.5-14.5) % Monocytes % 13.2 H (0-9) % Eosinophils % 7.6 H (0-6) % Monocytes (0-9) % Chloride (98-107) mmol/L Anion Gap 6.1 L (7-16) Random Glucose 127 H (70-110) mg/dL Calcium (8.5-10.1) mg/dL Condition at Discharge: (2) Stable Discharge Medications - Discharge Medications Prescriptions: Zolpidem Tartrate [Ambien] 5 mg PO QHS PRN #15 tab PRN Reason: Insomnia Docusate Sodium [Colace] 100 mg PO BID #60 cap Magnesium Oxide [Mag Ox] 400 mg PO DAILY #30 tab Tapentadol HCl [Nucynta] 50 mg PO Q4H PRN #15 tab PRN Reason: Pain - General Home Medications: Ambulatory Orders Ascorbic Acid [Vitamin C] 500 mg PO DAILY 11/17/14 [Last Taken 03/16/16] Beta-Carotene(A)-Vits C,E/Mins [Vision Vitamins] 1 each PO DAILY 11/17/14 [Last Taken 03/16/16] Biotin 2 cap PO DAILY 11/17/14 [Last Taken 03/16/16] Calcium Carbonate [Calcium] 600 mg PO DAILY 11/17/14 [Last Taken 03/16/16] Fish Oil/Dha/Epa [Fish Oil 1,200 mg Fish Oil] 1 each PO DAILY 11/17/14 [Last Taken 03/16/16] Ubidecarenone [Coq10] 2 tab PO DAILY 11/17/14 [Last Taken 03/16/16] Docusate Sodium [Colace] 100 mg PO BID #60 cap 02/06/17 [Last Taken Unknown] Levothyroxine Sodium [Synthroid] 100 mcg PO DAILYTHY 02/06/17 [Last Taken Unknown] Magnesium Oxide [Mag Ox] 400 mg PO DAILY #30 tab 02/06/17 [Last Taken Unknown] Tapentadol HCl [Nucynta] 50 mg PO Q4H PRN #15 tab 02/06/17 [Last Taken Unknown] Zolpidem Tartrate [Ambien] 5 mg PO QHS PRN #15 tab 02/06/17 [Last Taken Unknown] Discharge Plan - Discharge Instructions Activity at Discharge: As Per Physical Therapy, Increase Activity as Tolerated Diet at Discharge: Advance to Usual Diet Wound Primary Dressing Type: Bandaid Instructions: Urostomy Care (DC), Weakness (DC)
[2017-02-06] MEDS: LISINOPRIL 20 MG TABLET PO SCH (09:57)
[2017-02-06] MEDS: MAGNESIUM OXIDE 400 MG TABLET PO SCH (09:57)
[2017-02-06] MEDS: CALCIUM CARB/VITAMIN D 500MG/200IU PO SCH (09:57)
[2017-02-06] MEDS: DOCUSATE SODIUM 100 MG CAPSULE PO SCH (09:57)
[2017-02-06] MEDS: CHOLECALCIFEROL 1,000 UNIT TABLET PO SCH (09:57)
[2017-02-06] MEDS: TAPENTADOL 50 MG TAB PO PRN (13:48)
== END 2017-02-06 15:40 | disposition home health service (06) | DRG 948 ==
LOC: MEDSURG 16:09
PROVIDERS: ADMIT Family Medicine; ATTEND Family Medicine
DX: R53.1 Weakness (principal); D50.0 Iron deficiency anemia secondary to blood loss (chronic); C67.9 Malignant neoplasm of bladder, unspecified; Z78.9 Other specified health status; E03.9 Hypothyroidism, unspecified; I10 Essential (primary) hypertension; Z95.0 Presence of cardiac pacemaker; I48.2 Chronic atrial fibrillation
CPT/HCPCS: 80048; 85025; 85027; 97110; 97165; 97530; 97535; 99306; 99309; 99316

== ENCOUNTER 2018-02-17 14:14 | Emergency (ER) | payer MEDICARE, BC ==
[2018-02-17] MEDS ORDERED: ONDANSETRON HCL IV 4 MG/2 ML VIAL IVP ONE (14:38)
[2018-02-17] MEDS ORDERED: ACETAMINOPHEN 1,000 MG/100 ML BTL IVPB ONE (14:38)
[2018-02-17] MEDS ORDERED: 0.9 % SODIUM CHLORIDE 1,000 ML BAG IV ONE (14:38)
--- NOTE | 2018-02-17 14:41 | Emergency Department Record ---
History of Present Illness - General Chief Complaint: Abdominal Pain Stated Complaint: ABDOMINAL PAIN/ Time Seen by Provider: 02/17/18 14:33 Source: Patient Mode of Arrival: Wheelchair Limitations: No limitations - History of Present Illness Initial Comments: 82 yo female presents with about 10 days of abdominal pain. The pain is lower abdomen and constant. She denies fever. She has some nausea but denies vomiting. She initially saw her oncologist (bladder CA history). Dr Mast immediately referred her to Dr Varner of colorectal surgery. A colonoscopy and barium enema were performed at [facility]. She states no diagnosis was made or at least given to her. She had a CT scan at [facility] (see full report). She reports poor appetite. Small soft frequent stools. She has noted a mild decrease in urine output the last day. She is eating and drinking but less. Dr Enrique is her PCP. MD Complaint: Abdominal pain Onset/Timin -: Days(s) Location: Suprapubic, LLQ, RLQ Radiation: None Migration to: No migration Severity: Moderate Quality: Aching Consistency: Constant Improves With: Nothing Worsens With: Eating Associated Symptoms: Nausea - Related Data Patient : No Allergies Allergy/AdvReac Type Severity Reaction Status Date / Time acetaminophen [From Percocet] Allergy severe Verified 02/17/18 14:34 vomiting oxycodone HCl [From Percocet] Allergy severe Verified 02/17/18 14:34 vomiting tapentadol [From Nucynta] Allergy VOMITING Verified 02/17/18 14:34 tramadol HCl [From ULTRAM] AdvReac Severe NAUSEA AND Verified 02/17/18 14:34 VOMITING codeine [CODEINE] AdvReac Intermediate ALTERED Verified 02/17/18 14:34 MENTAL STATUS hydrocodone bitartrate AdvReac Intermediate NAUSEA AND Verified 02/17/18 14:34 [From [place]] VOMITING prednisone AdvReac Intermediate HIVES Verified 02/17/18 14:34 Sulfa (Sulfonamide AdvReac Intermediate RASH Verified 02/17/18 14:34 Antibiotics) [SULFA(SULFONAMIDE ANTIBIOTICS)] Travel Screening - Travel/Exposure Within Last 30 Days Have you traveled within the last 30 days?: No Review of Systems Constitutional: Reports: Malaise, Weakness. Denies: Chills, Fever Eyes: Denies: Eye discharge, Eye pain ENT: Denies: Congestion, Throat pain Respiratory: Denies: Cough Cardiovascular: Denies: Chest pain, Palpitations, Syncope Endocrine: Reports: Fatigue Gastrointestinal: Reports: As per HPI, Abdominal pain, Constipation, Diarrhea, Nausea. Denies: Hematemesis, Hematochezia Genitourinary: Denies: Dysuria, Urgency Musculoskeletal: Denies: Arthralgia, Back pain, Myalgia Skin: Denies: Bruising, Change in color, Rash Neurological: Denies: Headache, Numbness, Weakness Psychiatric: Denies: Anxiety Hematological/Lymphatic: Denies: Easy bleeding, Easy bruising Past Medical History - SOCIAL HISTORY Smoking Status: Never smoker - RESPIRATORY Hx Respiratory Disorders: No - CARDIOVASCULAR Hx Cardio Disorders: Yes Hx Abnormal EKG: No Hx Cardiac Cath: No Hx Chest Pain: No Hx CHF: No Hx Deep Vein Thrombosis: No Hx Edema: No Hx Heart Attack: No Hx Hypertension: Yes (good control w meds) Hx Hypotension: No Hx Irregular Heartbeat: No Hx Palpitations: No Hx Pacemaker/Defib: Yes (hx bradycardia) Hx Vascular Disease: No - NEURO Hx Neuro Disorders: Yes Hx Seizures: No - GI Hx GI Disorders: No - Hx Genitourinary Disorders: Yes Hx Bladder Problem: Yes (CA) Hx Dialysis: No Hx Kidney Stones: No Hx Renal Disease: No Hx UTI: Yes Comment:: bladder CA, Dr Arredondo following - ENDOCRINE Hx Endocrine Disorders: Yes Hx Diabetes: No - MUSCULOSKELETAL Hx Musculoskeletal Disorders: Yes Hx Arthritis: Yes Hx Back Injury: No Hx Fibromyalgia: No Hx Gout: No Hx Musculoskeletal Disease: Yes Hx Osteoporosis: No Comment:: scoliosis, 2 bad discs - PSYCH Hx Psych Problems: No - HEMATOLOGY/ONCOLOGY Hx Hematology/Oncology Disorders: Yes Hx Anemia: Yes Hx Blood Disorders: No Hx Bruising: No Hx Cancer: Yes (bladder) Hx Chemotherapy: Yes Hx Radiation Therapy: No Hx Clotting Problems: No Hx Sickle Cell Disease: No Hx Unexplained Bleeding: No Hx Blood Transfusions: Yes Hx Blood Transfusion Reaction: No Family Medical History Any Significant Family History?: Yes Hx Cancer: Father, Children *Cancer Comment: bladder father, daughter breast Hx Dementia: Mother *Dementia Comment: alzheimers mother Hx Diabetes: Children *Diabetes Comment: daughter Hx HTN: Father, Mother Hx Stroke: Father Physical Exam - General General Appearance: Alert, Oriented x3, Cooperative, No acute distress Limitations: No limitations - Head Head exam: Atraumatic, Normal inspection - Eye Eye exam: Normal appearance, Conjunctival injection. negative: Scleral icterus - ENT ENT exam: Normal exam Ear exam: Normal external inspection Nasal Exam: Normal inspection Mouth exam: Normal external inspection - Neck Neck exam: Normal inspection - Respiratory Respiratory exam: Normal lung sounds bilaterally. negative: Respiratory distress - Cardiovascular Cardiovascular Exam: Regular rate, Normal rhythm, Normal heart sounds - GI/Abdominal GI/Abdominal exam: Soft, Tenderness (soft abdomen but tender in the lower bilaterally, intact active bowel sounds). negative: Distended, Guarding, Rebound, Rigid - Rectal Rectal exam: Deferred - exam: Deferred - Extremities Extremities exam: Normal inspection - Back Back exam: Denies: CVA tenderness (R), CVA tenderness (L) - Neurological Neurological exam: Alert, Oriented X3 - Psychiatric Psychiatric exam: Normal affect, Normal mood - Skin Skin exam: Dry, Intact, Normal color, Warm Course Vital Signs 02/17/18 14:22 Temperature 98.8 F Pulse Rate 62 Respiratory 18 Rate Pulse Ox 97 - Reevaluation(s) Reevaluation #1: CT reviewed from 01/29/18 02/17/18 14:43 The labs were reviewed The hgb is 8.9 and is unchanged from prior The WBC is normal The CR is 6.6 with prior on normal on 02/02 at 0.7. No prior renal failure The BUN is 66 The GFR is 7 with prior on 02/02 >60 [facility] was utilized to find prior records Colonoscopy was performed on 02/13/18. Limited to sigmoid. Normal Barium enema was performed on 02/13/18 Severe diverticulosis. 02/17/18 15:11 Lactic Acid is normal at 0.6 02/17/18 16:12 02/17/18 16:19 CT with bilateral moderate hydronephrosis, small ascites, mild SB dilatation, ileo-loop diversion SP cystectomy [facility] One call contacted for transfer given the patient's need for specialty care not available at [facility]. 02/17/18 17:46 Room assigned at [facility], EMS present for transfer. Patient is stable for transfer. Medical Decision Making - Lab Data Result diagrams: 02/17/18 14:35 02/17/18 14:35 Disposition Disposition: Transfer Clinical Impression: Abdominal pain, Acute renal failure (ARF) Transfer To: [facility] Reason For Transfer: ARF, abdominal pain Accepting Physician: Yamila Time Discussed w/Accepting Physician: 16:23 Condition: (2) Stable Forms: Patient Portal Access Time of Disposition: 15:17 Quality - Quality Measures Quality Measures: N/A - Blood Pressure Screening Does Patient Have Any of the Following: Active Dx of HTN Blood Pressure Classification: Hypertensive Reading Systolic Measurement: 182 Diastolic Measurement: 74 Screening for High Blood Pressure: Patient Exclusion, Hx of HTN [G9744]
[2018-02-17 14:51] LABS: BASO % 0.2 % (0-6); EOS % 1.1 % (0-6); GRAN % 78.8 % (47-80); HEMATOCRIT 27.1 % (35.0-47.0); HEMOGLOBIN 8.9 gm/dl (11.6-16.0); LYMPH % 8.3 % (16-45); MEAN CELL VOLUME 91.6 fl (81-97); MEAN CORPUSCULAR HGB CONC 32.8 g/dl (32-36); MEAN PLATELET VOLUME 9.1 fl (7.4-10.4); MONO % 11.6 % (0-9); PLATELET COUNT 238 K/uL (130-400); RED BLOOD COUNT 2.96 M/uL (3.80-5.40); RED CELL DISTRIBUTION WIDTH 14.4 % (11.5-14.5); WHITE BLOOD COUNT W/O DIFF 5.4 K/uL (4.2-12.2)
[2018-02-17 15:05] LABS: BILIRUBIN,TOTAL 0.2 mg/dL (0.2-1.0); CREATININE 6.4 mg/dL (0.5-0.9); TOTAL PROTEIN 5.7 g/dL (6.6-8.7)
[2018-02-17 15:07] LABS: INR 1.1; PARTIAL THROMBOPLASTIN TIME 26.7 SECONDS (24.5-39.1); PROTHROMBIN TIME (PATIENT) 10.6 SECONDS (9.5-12.1)
[2018-02-17 15:08] LABS: ALB/GLOB RATIO 1.4 (1.1-1.8); ALBUMIN 3.3 g/dL (4.0-5.0)
[2018-02-17] MEDS ORDERED: 0.9 % SODIUM CHLORIDE 1000ML 1,000 ML IV ONE (16:13)
== END 2018-02-17 17:56 | disposition short-term general hospital (02) ==
LOC: ER 14:14
DX: N17.9 Acute kidney failure, unspecified (principal); R10.84 Generalized abdominal pain; R11.0 Nausea; K57.90 Diverticulosis of intestine, part unspecified, without perforation or abscess without bleeding; I10 Essential (primary) hypertension; Z85.51 Personal history of malignant neoplasm of bladder
CPT/HCPCS: 99285 ×2; 96365; 96375; 96361; 83605; 83690; 85025; 85730; 85610; 80053; 74176; J2405; J7030

== ENCOUNTER 2018-03-07 21:14 | Emergency (ER) | payer MEDICARE, BC ==
[2018-03-07] MEDS ORDERED: ONDANSETRON HCL IV 4 MG/2 ML VIAL IV ONE (21:38)
[2018-03-07] MEDS ORDERED: 0.9 % SODIUM CHLORIDE 1,000 ML BAG IV ONE (21:38)
--- NOTE | 2018-03-07 21:42 | Emergency Department Record ---
History of Present Illness - General Chief Complaint: Abdominal Pain Stated Complaint: PAIN Time Seen by Provider: 03/07/18 21:19 Source: Patient Mode of Arrival: Ambulatory Limitations: No limitations - History of Present Illness Initial Comments: The patient is here due to worsening R flank and Ap. She was just discharged from [facility] where she was admitted for 6 days due to a SBO. She did have 2 normal meals and then did have 2 BM's. Since discharge she has developed R flank and upper anterior AP and mild distension. She feels her SBO is back. There has been nausea but no vomiting. MD Complaint: Abdominal pain Onset/Timin -: Days(s) Location: R Flank Severity scale (1-10): 7 Consistency: Constant, Getting worse - Related Data Patient : No Allergies Allergy/AdvReac Type Severity Reaction Status Date / Time acetaminophen [From Percocet] Allergy severe Verified 03/01/18 12:01 vomiting oxycodone HCl [From Percocet] Allergy severe Verified 03/01/18 12:01 vomiting tapentadol [From Nucynta] Allergy VOMITING Verified 03/01/18 12:01 tramadol HCl [From ULTRAM] AdvReac Severe NAUSEA AND Verified 03/01/18 12:01 VOMITING codeine [CODEINE] AdvReac Intermediate ALTERED Verified 03/01/18 12:01 MENTAL STATUS hydrocodone bitartrate AdvReac Intermediate NAUSEA AND Verified 03/01/18 12:01 [From [place]] VOMITING prednisone AdvReac Intermediate HIVES Verified 03/01/18 12:01 Sulfa (Sulfonamide AdvReac Intermediate RASH Verified 03/01/18 12:01 Antibiotics) [SULFA(SULFONAMIDE ANTIBIOTICS)] Travel Screening - Travel/Exposure Within Last 30 Days Have you traveled within the last 30 days?: No Review of Systems Constitutional: Denies: Chills, Fever Eyes: Denies: Eye discharge ENT: Denies: Congestion Respiratory: Denies: Cough, Dyspnea Cardiovascular: Denies: Arrhythmia, Chest pain Endocrine: Reports: Fatigue Gastrointestinal: Reports: Abdominal pain, Nausea. Denies: Diarrhea, Vomiting Genitourinary: Denies: Dysuria Musculoskeletal: Denies: Arthralgia Neurological: Denies: Abnormal gait Past Medical History - SOCIAL HISTORY Smoking Status: Never smoker Alcohol Use: None Drug Use: None - RESPIRATORY Hx Respiratory Disorders: No - CARDIOVASCULAR Hx Cardio Disorders: Yes Hx Abnormal EKG: No Hx Cardiac Cath: No Hx Chest Pain: No Hx CHF: No Hx Deep Vein Thrombosis: No Hx Edema: No Hx Heart Attack: No Hx Hypertension: Yes (good control w meds) Hx Hypotension: No Hx Irregular Heartbeat: No Hx Palpitations: No Hx Pacemaker/Defib: Yes (hx bradycardia) Hx Vascular Disease: No - NEURO Hx Neuro Disorders: Yes Hx Seizures: No - GI Hx GI Disorders: No - Hx Genitourinary Disorders: Yes Hx Bladder Problem: Yes (CA) Hx Dialysis: No Hx Kidney Stones: No 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) Hx UTI: Yes (urostomy) Comment:: bladder CA, Dr Arredondo following - ENDOCRINE Hx Endocrine Disorders: Yes Hx Diabetes: No - MUSCULOSKELETAL Hx Musculoskeletal Disorders: Yes Hx Arthritis: Yes Hx Back Injury: No Hx Fibromyalgia: No Hx Gout: No Hx Musculoskeletal Disease: Yes Hx Osteoporosis: No Comment:: scoliosis, 2 bad discs - PSYCH Hx Psych Problems: No - HEMATOLOGY/ONCOLOGY Hx Hematology/Oncology Disorders: Yes Hx Anemia: Yes Hx Blood Disorders: No Hx Bruising: No Hx Cancer: Yes (bladder) Hx Chemotherapy: Yes Hx Radiation Therapy: No Hx Clotting Problems: No Hx Sickle Cell Disease: No Hx Unexplained Bleeding: No Hx Blood Transfusions: Yes Hx Blood Transfusion Reaction: No Family Medical History Any Significant Family History?: Yes Hx Cancer: Father, Children *Cancer Comment: bladder father, daughter breast Hx Dementia: Mother *Dementia Comment: alzheimers mother Hx Diabetes: Children *Diabetes Comment: daughter Hx HTN: Father, Mother Hx Stroke: Father Physical Exam - General General Appearance: Alert, Oriented x3, Cooperative, No acute distress - Head Head exam: Atraumatic, Normocephalic, Normal inspection - Eye Eye exam: Normal appearance, PERRL - ENT Throat exam: Normal inspection. negative: Tonsillar erythema, Tonsillar exudate - Neck Neck exam: Normal inspection, Full ROM. negative: Tenderness - Respiratory Respiratory exam: Normal lung sounds bilaterally. negative: Respiratory distress - Cardiovascular Cardiovascular Exam: Regular rate, Normal rhythm, Normal heart sounds - GI/Abdominal GI/Abdominal exam: Distended (mildly.), Tenderness (There is diffuse upper abdominal tenderness.). negative: Soft, Rebound, Rigid - Extremities Extremities exam: Normal inspection, Full ROM, Normal capillary refill. negative: Tenderness Course Vital Signs 03/07/18 21:32 Temperature 98.5 F Pulse Rate [ 60 Pulse Ox Probe] Respiratory 20 Rate Blood Pressure 147/63 [Left Arm] Pulse Ox 98 - Reevaluation(s) Reevaluation #1: The patient is doing better at this time. She is resting comfortably in no distress. We are waiting for the CT report. 03/07/18 23:22 Reevaluation #2: I did discuss the case with Dr. Vilchis at [facility] [facility] and he does accept the patient in transfer back to [facility]. The patient does agree with the plan. 03/07/18 23:41 Medical Decision Making - Data Complexity MDM Data: Labs Ordered and/or Reviewed, X-Ray Ordered and/or Reviewed - Lab Data Result diagrams: 03/07/18 21:50 03/07/18 21:50 - Radiology Data Radiology results: Report reviewed (CT: SBO vs severe ileus. Significant ascites.) Disposition Disposition: Transfer Clinical Impression: SBO (small bowel obstruction) Disposition: Acute Care Hospital Transfer Transfer To: [facility] [facility] Reason For Transfer: SBO Accepting Physician: Deng Time Discussed w/Accepting Physician: 23:42 Condition: (2) Stable Forms: Patient Portal Access Time of Disposition: 23:42 Quality - Quality Measures Quality Measures: N/A - Blood Pressure Screening View Details: Yes Does Patient Have Any of the Following: Active Dx of HTN Blood Pressure Classification: Hypertensive Reading Systolic Measurement: 142 Diastolic Measurement: 76 Screening for High Blood Pressure: Patient Exclusion, Hx of HTN [G9744]
[2018-03-07] MEDS ORDERED: MORPHINE SULFATE 10 MG/ML VIAL IVP ONE (21:44)
[2018-03-07 22:02] LABS: HEMOGLOBIN 8.1 gm/dl (11.6-16.0); MEAN CELL VOLUME 93.9 fl (81-97); MEAN CORPUSCULAR HEMOGLOBIN 29.2 pg (27-33); MEAN CORPUSCULAR HGB CONC 31.2 g/dl (32-36); MEAN PLATELET VOLUME 9.5 fl (7.4-10.4); PLATELET COUNT 281 K/uL (130-400); RED BLOOD COUNT 2.77 M/uL (3.80-5.40); RED CELL DISTRIBUTION WIDTH 15.9 % (11.5-14.5); WHITE BLOOD COUNT W/O DIFF 4.8 K/uL (4.2-12.2)
[2018-03-07 22:11] LABS: BILIRUBIN,TOTAL 0.3 mg/dL (0.2-1.0); CREATININE 1.4 mg/dL (0.5-0.9)
[2018-03-07 22:17] LABS: ALB/GLOB RATIO 1.2 (1.1-1.8); ALBUMIN 3.3 g/dL (4.0-5.0)
[2018-03-08] MEDS ORDERED: HYDROMORPHONE HCL 2 MG/ML VIAL IVP ONE (00:03)
[2018-03-08] MEDS ORDERED: ONDANSETRON HCL IV 4 MG/2 ML VIAL IVP ONE (01:14)
== END 2018-03-08 01:34 | disposition short-term general hospital (02) ==
LOC: ER 21:14
DX: K56.609 Unspecified intestinal obstruction, unspecified as to partial versus complete obstruction (principal); R11.0 Nausea; I10 Essential (primary) hypertension
CPT/HCPCS: 99285 ×2; 96376; 96374; 96375; 83690; 80053; 85027; 74176; J2405 ×2; J1170; J2270; J7030

== ENCOUNTER 2018-03-17 15:15 | Emergency (ER) | payer MEDICARE, BC ==
[2018-03-17] MEDS ORDERED: 0.9 % SODIUM CHLORIDE 1000ML 1,000 ML IV PRN (15:45)
--- NOTE | 2018-03-17 15:54 | Emergency Department Record ---
History of Present Illness - General Chief Complaint: Abdominal Pain Stated Complaint: ABD pain Time Seen by Provider: 03/17/18 15:37 Source: Patient Mode of Arrival: Ambulatory Limitations: No limitations - History of Present Illness Initial Comments: The patient is here due recurrent SBO's. She has been to [facility] twice in the last 2 weeks for the same issues and was just discharged 4 days ago. Now she is again unable to eat and drink and has abdominal distension. The patient has been having decent urine output per her family. She did have an episode of acute renal failure from blocked ureters but that was resolved with diverting Urostomy tubes. MD Complaint: Abdominal pain Onset/Timin -: Days(s) Severity: Moderate Severity scale (1-10): 5 Quality: Aching Consistency: Constant Improves With: Nothing Associated Symptoms: Nausea - Related Data Patient : No Allergies Allergy/AdvReac Type Severity Reaction Status Date / Time acetaminophen [From Percocet] Allergy severe Verified 03/17/18 15:25 vomiting oxycodone HCl [From Percocet] Allergy severe Verified 03/17/18 15:25 vomiting tapentadol [From Nucynta] Allergy VOMITING Verified 03/17/18 15:25 tramadol HCl [From ULTRAM] AdvReac Severe NAUSEA AND Verified 03/17/18 15:25 VOMITING codeine [CODEINE] AdvReac Intermediate ALTERED Verified 03/17/18 15:25 MENTAL STATUS hydrocodone bitartrate AdvReac Intermediate NAUSEA AND Verified 03/17/18 15:25 [From [place]] VOMITING prednisone AdvReac Intermediate HIVES Verified 03/17/18 15:25 Sulfa (Sulfonamide AdvReac Intermediate RASH Verified 03/17/18 15:25 Antibiotics) [SULFA(SULFONAMIDE ANTIBIOTICS)] Travel Screening - Travel/Exposure Within Last 30 Days Have you traveled within the last 30 days?: No - Travel/Exposure Within Last Year Have you traveled outside the [place] in the last year?: No - Additonal Travel Details Have you been exposed to anyone with a communicable illness?: No - Travel Symptoms Symptom Screening: None Review of Systems Constitutional: Denies: Chills, Fever Eyes: Denies: Eye discharge ENT: Denies: Congestion Respiratory: Denies: Cough, Dyspnea Cardiovascular: Denies: Arrhythmia, Chest pain Endocrine: Reports: Fatigue Gastrointestinal: Reports: Abdominal pain, Nausea. Denies: Diarrhea, Vomiting Genitourinary: Denies: Dysuria Musculoskeletal: Denies: Back pain Skin: Denies: Bruising Past Medical History - SOCIAL HISTORY Smoking Status: Never smoker Alcohol Use: None Drug Use: None - RESPIRATORY Hx Respiratory Disorders: No - CARDIOVASCULAR Hx Cardio Disorders: Yes Hx Abnormal EKG: No Hx Cardiac Cath: No Hx Chest Pain: No Hx CHF: No Hx Deep Vein Thrombosis: No Hx Edema: No Hx Heart Attack: No Hx Hypertension: Yes (good control w meds) Hx Hypotension: No Hx Irregular Heartbeat: No Hx Palpitations: No Hx Pacemaker/Defib: Yes (hx bradycardia) Hx Vascular Disease: No - NEURO Hx Neuro Disorders: Yes Hx Seizures: No - GI Hx GI Disorders: No - Hx Genitourinary Disorders: Yes Hx Bladder Problem: Yes (CA) Hx Dialysis: No Hx Kidney Stones: No 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) Hx UTI: Yes (urostomy) Comment:: bladder CA, Dr Arredondo following - ENDOCRINE Hx Endocrine Disorders: Yes Hx Diabetes: No - MUSCULOSKELETAL Hx Musculoskeletal Disorders: Yes Hx Arthritis: Yes Hx Back Injury: No Hx Fibromyalgia: No Hx Gout: No Hx Musculoskeletal Disease: Yes Hx Osteoporosis: No Comment:: scoliosis, 2 bad discs - PSYCH Hx Psych Problems: No - HEMATOLOGY/ONCOLOGY Hx Hematology/Oncology Disorders: Yes Hx Anemia: Yes Hx Blood Disorders: No Hx Bruising: No Hx Cancer: Yes (bladder) Hx Chemotherapy: Yes Hx Radiation Therapy: No Hx Clotting Problems: No Hx Sickle Cell Disease: No Hx Unexplained Bleeding: No Hx Blood Transfusions: Yes Hx Blood Transfusion Reaction: No Family Medical History Any Significant Family History?: Yes Hx Cancer: Father, Children *Cancer Comment: bladder father, daughter breast Hx Dementia: Mother *Dementia Comment: alzheimers mother Hx Diabetes: Children *Diabetes Comment: daughter Hx HTN: Father, Mother Hx Stroke: Father Physical Exam - General General Appearance: Alert, Oriented x3, Cooperative, No acute distress - Head Head exam: Atraumatic, Normocephalic, Normal inspection - Eye Eye exam: Normal appearance, PERRL, EOMI - Neck Neck exam: Normal inspection, Full ROM. negative: Tenderness - Respiratory Respiratory exam: Normal lung sounds bilaterally. negative: Respiratory distress - Cardiovascular Cardiovascular Exam: Regular rate, Normal rhythm, Normal heart sounds - GI/Abdominal GI/Abdominal exam: Diminished bowel sounds, Distended. negative: Soft, Guarding , Rebound, Rigid, Tenderness - Extremities Extremities exam: Normal inspection, Full ROM, Normal capillary refill. negative: Tenderness - Neurological Neurological exam: Alert. negative: Motor sensory deficit - Skin Skin exam: negative: Rash Course Vital Signs 03/17/18 15:17 Temperature 97.6 F Pulse Rate 91 H Respiratory 18 Rate Blood Pressure 137/62 Pulse Ox 95 - Reevaluation(s) Reevaluation #1: The patient did have a BM in the ED. She denies any AP or nausea and has no abdominal tenderness but is still mildly distended on exam. I did discuss the xrays with the patient and daughter and the fact they do demonstrate a SBO. Due to that fact I did recommend admission to [facility] but the patent is reluctant to go back there. 03/17/18 16:41 Reevaluation #2: The patient is doing a little better and did have a BM here in the ER. She denies any AP, nausea, or vomiting. I did recommend transfer back to [facility] and the patient did agree to that. I also did discuss the case with Dr. Marx and he is aware of the patient coming back. 03/17/18 17:22 Reevaluation #3: I did discuss the case with Dr. Jasso from [facility] and he did accept the patient in transfer. He also will put a consult in to [facility] for tomorrow. 03/17/18 17:34 Medical Decision Making - Data Complexity MDM Data: Labs Ordered and/or Reviewed, X-Ray Ordered and/or Reviewed - Lab Data Result diagrams: 03/17/18 16:00 03/17/18 16:00 - Radiology Data Radiology results: Report reviewed (AXR: SBO.) Disposition Disposition: Transfer Clinical Impression: SBO (small bowel obstruction) Disposition: Acute Care Hospital Transfer Transfer To: [facility] Reason For Transfer: SBO Accepting Physician: Surgery Time Discussed w/Accepting Physician: 17:24 Condition: (2) Stable Forms: Patient Portal Access Time of Disposition: 17:24 Quality - Quality Measures Quality Measures: N/A - Blood Pressure Screening View Details: Yes Does Patient Have Any of the Following: No Blood Pressure Classification: Pre-Hypertensive BP Reading Systolic Measurement: 137 Diastolic Measurement: 62 Screening for High Blood Pressure: < Pre-Hypertensive BP, F/U Documented > [ [id number]] Pre-Hypertensive Follow-up Interventions: Referral to alternative/primary care provider.
[2018-03-17 16:06] LABS: HEMATOCRIT 25.6 % (35.0-47.0); HEMOGLOBIN 8.2 gm/dl (11.6-16.0); MEAN CELL VOLUME 90.8 fl (81-97); MEAN PLATELET VOLUME 8.8 fl (7.4-10.4); PLATELET COUNT 440 K/uL (130-400); RED BLOOD COUNT 2.82 M/uL (3.80-5.40); WHITE BLOOD COUNT W/O DIFF 11.3 K/uL (4.2-12.2)
[2018-03-17 16:16] LABS: HYPOCHROMIA 2+; PLATELET ESTIMATE NORMAL (NORMAL)
[2018-03-17 16:18] LABS: BLOOD UREA NITROGEN 33 mg/dL (8-23); CREATININE 1.4 mg/dL (0.5-0.9); EST GLOMERULAR FILTRATION RATE 38 mL/min
[2018-03-17 16:19] LABS: TOTAL PROTEIN 6.2 g/dL (6.6-8.7)
[2018-03-17 16:21] LABS: GLUCOSE,RANDOM 137 mg/dL (74-109)
[2018-03-17 16:23] LABS: ALT/SGPT 10 U/L (<33); AST/SGOT 17 U/L (10.0-35.0)
[2018-03-17 16:24] LABS: ALBUMIN 2.8 g/dL (4.0-5.0); ALKALINE PHOSPHATASE 100 U/L (35-104); LIPASE 18 U/L (13-60)
[2018-03-17 16:26] LABS: BILIRUBIN,DIRECT < 0.2 mg/dL (0-0.3)
--- NOTE | 2018-03-19 14:55 | RADIOLOGY REPORT ---
EXAM: ACUTE ABDOMEN SERIES HISTORY: ABDOMINAL DISTENTION. TECHNIQUE: Frontal view of the chest and supine and upright views of the abdomen were obtained. Comparison: CT of the abdomen and pelvis 03/07/18. FINDINGS: CHEST: A few linear bands of opacity are present in the perihilar regions. No consolidation. No pleural effusion or pneumothorax. The cardiomediastinal silhouette is within normal limits. Central venous catheter from a right subclavian approach terminates in the superior vena cava. Two lead pacemaker again seen. ABDOMEN: Severely distended small bowel is similar to recent CT scan with numerous air fluid levels. No evidence of free air. Drainage catheters are present in the right and left mid abdomen in the interim. Hardware again seen in the lumbar spine and right hip. IMPRESSION: FINDINGS ARE AGAIN CONSISTENT WITH MECHANICAL SMALL BOWEL OBSTRUCTION, SIMILAR TO CT FROM 03/07/18. NO EVIDENCE OF BOWEL PERFORATION. JOB NUMBER: [id number] MTDD
== END 2018-03-17 19:40 | disposition short-term general hospital (02) ==
LOC: ER 15:15
DX: K56.609 Unspecified intestinal obstruction, unspecified as to partial versus complete obstruction (principal); R11.0 Nausea; N17.9 Acute kidney failure, unspecified; I10 Essential (primary) hypertension; C67.9 Malignant neoplasm of bladder, unspecified
CPT/HCPCS: 74022; 80048; 80076; 83690; 84443; 85027; 99285